=== PATIENT | male | born 1960 | race Caucasian/White ===

== ENCOUNTER 2021-01-05 18:42 | Inpatient (IN) ==
[2021-01-05] MEDS ORDERED: polyethylene glycoL 3350 17 GM POWD.PACK PO PRN (21:16)
[2021-01-05] MEDS ORDERED: Bisacodyl 10 MG RECTAL SUPPOSITORY RC PRN (21:16)
[2021-01-05] MEDS ORDERED: *HR* LORazepam Oral Conc 2 MG/ML PO PRN (21:16)
[2021-01-05] MEDS ORDERED: Acetaminophen 325 MG TABLET PO PRN (21:16)
[2021-01-05] MEDS ORDERED: Albuterol 2.5 MG/3 ML NEBULIZER IH PRN (21:16)
[2021-01-05] MEDS ORDERED: Acetaminophen 650 MG RECTAL SUPP RC PRN (21:16)
[2021-01-05] MEDS ORDERED: Haloperidol Oral Conc 10 MG/5 ML UDC PO PRN (21:16)
[2021-01-05] MEDS ORDERED: Ondansetron 4 MG/2 ML VIAL IVP PRN (21:16)
[2021-01-05] MEDS ORDERED: Lactulose Oral Soln 20 GM/30 ML UDC PO PRN (21:16)
[2021-01-05] MEDS ORDERED: Atropine 1% Opth Drops 100 DROP/5 ML BOTTLE SL PRN (21:16)
[2021-01-06] MEDS: Morphine Sulfate Oral CONC 10 MG/0.5 ML ORAL.SYG PO PRN ×6 (00:23→23:36)
[2021-01-06] MEDS: Megestrol Acetate 400 MG/10 ML UDC PO SCH (11:52)
[2021-01-06] MEDS: 0.9 % Sodium Chloride 1,000 ML IVC SCH ×2 (11:53→23:37)
[2021-01-06] MEDS: *HR* LORazepam 2 MG/ML VIAL IVP PRN ×2 (13:49→18:21)
[2021-01-06 20:17] VITALS: BP 128/88; RESP 14
[2021-01-07] MEDS: Morphine Sulfate Oral CONC 10 MG/0.5 ML ORAL.SYG PO PRN ×4 (02:05→09:13)
[2021-01-07 08:29] VITALS: PULSE 137; TEMP 98.8; O2SAT 83
[2021-01-07] MEDS: Megestrol Acetate 400 MG/10 ML UDC PO SCH (11:31)
[2021-01-07] MEDS ORDERED: Morphine Sulfate Oral CONC 10 MG/0.5 ML ORAL.SYG PO PRN (11:34)
[2021-01-07] MEDS: *HR* LORazepam 2 MG/ML VIAL IVP PRN (12:46)
[2021-01-07] MEDS: 0.9 % Sodium Chloride 1,000 ML IVC SCH (13:15)
== END 2021-01-07 21:46 | disposition expired | DRG 951 ==
LOC: INPPIK 20:49
PROVIDERS: ADMIT Internal Medicine; ATTEND Internal Medicine